=== PATIENT | female | born 1955 | race Caucasian/White ===

== ENCOUNTER 2018-05-12 00:55 | Emergency (ER) | payer MEDICARE ==
[~2018-05-12] VITALS: Ht 157.5 cm; Wt 39.5 kg
[2018-05-12 00:59] VITALS: Ht 157.5 cm; Wt 39.5 kg
[2018-05-12] MEDS ORDERED: PLAQUENIL 200200 MG PO (01:01)
[2018-05-12] MEDS ORDERED: COMBIVENT RESPIM4 GM INH (01:01)
[2018-05-12] MEDS ORDERED: CYMBALTA60 MG PO (01:02)
[2018-05-12] MEDS ORDERED: CALCIUM 600 +1 EAC3 PO (01:02)
[2018-05-12] MEDS ORDERED: HYDROCODON-ACE1 EAC7 PO (01:02)
[2018-05-12] MEDS ORDERED: PLAVIX75 MG (01:02)
[2018-05-12 02:10] LABS: HEMOGLOBIN 10.7 g/dL (12-16); MCH 26.1 pg (26.0-34.0); MCHC 31.5 g/dL (31.0-37.0); MCV 82.9 fL (80.0-100.0); PLATELET COUNT 551 10x3/uL (130-400); RDW 16.7 % (11.5-14.5); WBC 24.5 10x3/uL (4.8-10.8)
[2018-05-12 02:23] LABS: INR 1.07 (0.85-1.17); PROTIME 13.5 SECONDS (11.6-15.0)
[2018-05-12 02:31] LABS: ALBUMIN 2.7 g/dL (3.4-5.0); ALKALINE PHOSPHATASE 67 U/L (46-116); ALT (SGPT) 10 U/L (10-68); CALC OSMOLALITY 274 mosm/kg (275-300); CALCIUM 9.1 mg/dL (8.5-10.1); CARBON DIOXIDE 28.6 mmol/L (21.0-32.0); CHLORIDE - SERUM 100 mmol/L (98-107); CREATININE - SERUM 0.8 mg/dL (0.6-1.3); D-DIMER-QUANTITATIVE 4.58 ug/mLFEU (0.20-0.54); GLUCOSE 107 mg/dL (74-106); POTASSIUM - SERUM 3.8 mmol/L (3.5-5.1); PROTEIN - SERUM 8.5 g/dL (6.4-8.2); SODIUM 137 mmol/L (136-145); UREA NITROGEN 14 mg/dL (7-18); eGFR NON AFRICAN AMERICAN 77 mL/min (90-120)
[2018-05-12 02:34] LABS: CKMB 2.4 U/L (0.0-3.6); CREATINE KINASE 101 UL (21-215); MAGNESIUM - SERUM 1.7 mg/dL (1.8-2.4); PRO BNP 2091 pg/mL (0-125)
[2018-05-12 02:39] LABS: TROPONIN-I < 0.017 ng/mL (0.000-0.060)
[2018-05-12 03:05] LABS: LYMPHOCYTES 3 % (15-50); MONOCYTES 2 % (2-11); NEUTROPHILS 92 % (40-80); PLATELET ESTIMATE INCREASED; PLATELET MORPHOLOGY GIANT PLTS PRESENT
[2018-05-12] MEDS ORDERED: LEVAQUIN750 MG PO (04:30)
[2018-05-12 04:57] VITALS: BP 118/69
[2018-05-14 20:08] VITALS: Ht 157.5 cm; Wt 39.5 kg
== END 2018-05-12 04:57 | disposition home or self-care (01) ==
LOC: D.ER 00:55
PROVIDERS: Family Medicine
DX: J44.9 Chronic obstructive pulmonary disease, unspecified (principal); D72.829 Elevated white blood cell count, unspecified; R91.8 Other nonspecific abnormal finding of lung field; R06.02 Shortness of breath; Z89.512 Acquired absence of left leg below knee; F17.200 Nicotine dependence, unspecified, uncomplicated

== ENCOUNTER 2018-05-13 20:03 | Inpatient (IN) | payer MEDICARE, MEDICAID ==
[~2018-05-13] VITALS: Ht 157.5 cm; Wt 38.0 kg
--- NOTE | ~2018-05-13 | MORECARE ---
CASE MANAGEMENT DISCHARGE SUMMARY PATIENT: LA FRANKLIN UNIT: [id number] ADM DATE: 05/13/18 AGE: 63 : 59 SEX: F ROOM/BED: D.2105 AUTHOR: ALTON,DOC PHYSICIAN: REFERRING PHYSICIAN: NICK ADAM MD DATE OF SERVICE: 05/19/18 Discharge Plan Patient Name: LA FRANKLIN Facility: [facility]:[place] : 1955 Planned Disposition: Home with Home Health Anticipated Discharge Date: 05/18/18 Discharge Date: 05/18/2018 Expected LOS: 5 Initial Reviewer: [id number] Initial Review Date: 05/13/2018 Generated: 05/19/18 9:26 am Comments DCP- Discharge Planning Updated by [email or web address]: Florencia Miller on 05/18/18 6:[address] Patient Name: LA FRANKLIN Admission Status: ER Accout number: [id number] Admission Date: 05-13-2018 : 1955 Admission Diagnosis:SHORTNESS OF BREATH Attending: NICK ADAM Current LOS: 5 Anticipated DC Date: 05-18-2018 Planned Disposition: Home with Home Health Primary Insurance: [facility] MEDICARE SOLUTIONS Discharge Planning Comments: LATE ENTRY 1210 CM MET WITH THE PATIENT AND HER DAUGHTER, RADHA, AT THE BEDSIDE. PATIENT GAVE PERMISSION FOR CM TO DISCUSS DISCHARGE PLANS AND NEEDS WITH DAUGHTER BEING PRESENT IN THE ROOM. SHE WILL RETURN TO HOME WITH HER FAMILY. SHE HAS A RAMP TO ENTER HER HOME. PCP- DR FULLER IN [facility]. PHARMACY [address] PATIENT WAS WEARING NASAL OXYGEN AY 3/L MIN. CM REQUESTED O2 READINGS ON RM AIR AT REST AND WITH ACTIVITY. O2 SATS 95% AT REST 93% WITH MINIMAL ACTIVITY BY RESPIRATORY THERAPY.. PATIENT STATES SHE HAS HOME HEALTH W/ [facility]. HAS TRANSPORTATION TO HOME. DISCUSSED DISCHARGE IMM. NO QUESTIONS OR CONCERNS. SIGNATURE OBTAINED FROM PATIENT COPY TO THE PATIENT. COPY TO THE CHART. DENIES ANY ADDITIONAL NEEDS. CM NOTIFIED [facility] AND FAXED CLINUICAL AND DISCHARGE MED LIST . SPOKE WITH JETHRO. Slab Stripper: Florencia Miller DCPIA - Discharge Planning Initial Assessment Updated by [email or web address]: Florencia Miller on 05/18/18 6:49 pm * Is the patient Alert and Oriented? Yes * How many steps to enter\exit or inside your home? RAMP * PCP DR ALEN FULLER [facility] * Pharmacy [facility] [address] * Preadmission Environment Home with Family * ADLs Partial Dependent * Partial ADLs (Assistance needed) Bathing Dressing * Equipment Walker * Other Equipment DENIES ANY ADDITIONAL DME * List name and contact numbers for known caregivers / representatives who currently or will assist patient after discharge: GemaJulio FRANKLIN [phone] * Verbal permission to speak to the caregivers and representatives has been obtained from the patient. Yes * Community resources currently utilized Home Health * Please name any agencies selected above. [facility] * Additional services required to return to the preadmission environment? Yes * Can the patient safely return to the preadmission environment? Yes * Has this patient been hospitalized within the prior 30 days at any hospital? No Coverage Notice Reviewer: [email or web address] Marisela Miller Notice Issued Date-Time: 05/18/2018 12:38 Notice Type: IM Discharge Notice Notice Delivered To: Patient Relationship to Patient: Pressure Testing Technician Name: Delivery Method: HAND - Hand Delivered Anat Days: Prior Verbal Notification: Recipient Understood Notice: Yes Recipient Signature: Yes Med Rec Note Co-signed by Attending: Coverage Notice Comment: DISCUSSED WITH THE PATIENT IN PRESENCE OF RADHA MATTHEWS, WITH PATIENT'S PERMISSION. NO QUESTIONS OR CONCERNS. SIGNATURE OBTAINED. COPY TO THE CHART. COPY TO THE PATIENT. Last DP export: 05/18/18 6:02 Patient Name: LA FRANKLIN Page [id number] at 0826 All edits/amendments must be made on the electronic document DICTATION DATE: 05/19/18824 BEHAVIORAL HEALTH ASSISTANT: PIA 05/19/18824 RPT#: [id number] DC DATE:05/18/18 STATUS: DIS IN [facility] [address] [place] [address] END OF REPORT
--- NOTE | ~2018-05-13 | MORECARE ---
CASE MANAGEMENT DISCHARGE SUMMARY PATIENT: LA FRANKLIN UNIT: [id number] ADM DATE: 05/13/18 AGE: 63 : 59 SEX: F ROOM/BED: D.2103 AUTHOR: RICCI DANG PHYSICIAN: REFERRING PHYSICIAN: NICK ADAM MD DATE OF SERVICE: 05/18/18 Discharge Plan Patient Name: LA FRANKLIN Facility: [facility]:[place] : 1955 Planned Disposition: Home with Home Health Anticipated Discharge Date: 05/18/18 Discharge Date: 05/18/2018 Expected LOS: 5 Initial Reviewer: [email or web address] Initial Review Date: 05/13/2018 Generated: 05/18/18 7:42 pm Patient Name: LA FRANKLIN Page [id number] at 1842 All edits/amendments must be made on the electronic document DICTATION DATE: 05/18/181841 CATERING STAFF MEMBER: PIA 05/18/181841 RPT#: [id number] DC DATE:05/18/18 STATUS: DIS IN [facility] [address] [place] [address] END OF REPORT
--- NOTE | ~2018-05-13 | MORECARE ---
CASE MANAGEMENT DISCHARGE SUMMARY PATIENT: LA FRANKLIN UNIT: [id number] ADM DATE: 05/13/18 AGE: 63 : 59 SEX: F ROOM/BED: D.2107 AUTHOR: ALTON,DOC PHYSICIAN: REFERRING PHYSICIAN: NICK ADAM MD DATE OF SERVICE: 05/18/18 Discharge Plan Patient Name: LA FRANKLIN Facility: [facility]:[place] : 1955 Planned Disposition: Home with Home Health Anticipated Discharge Date: 05/18/18 Discharge Date: 05/18/2018 Expected LOS: 5 Initial Reviewer: [email or web address] Initial Review Date: 05/13/2018 Generated: 05/18/18 8:02 pm Comments DCP- Discharge Planning Updated by [email or web address]: Florencia Miller on 05/18/18 6:[address] Patient Name: LA FRANKLIN Admission Status: ER Accout number: [id number] Admission Date: 05-13-2018 : 1955 Admission Diagnosis:SHORTNESS OF BREATH Attending: NICK ADAM Current LOS: 5 Anticipated DC Date: 05-18-2018 Planned Disposition: Home with Home Health Primary Insurance: [facility] MEDICARE SOLUTIONS Discharge Planning Comments: LATE ENTRY 1210 CM MET WITH THE PATIENT AND HER DAUGHTER, RADHA, AT THE BEDSIDE. PATIENT GAVE PERMISSION FOR CM TO DISCUSS DISCHARGE PLANS AND NEEDS WITH DAUGHTER BEING PRESENT IN THE ROOM. SHE WILL RETURN TO HOME WITH HER FAMILY. SHE HAS A RAMP TO ENTER HER HOME. PCP- DR FULLER IN [facility]. PHARMACY [address] PATIENT WAS WEARING NASAL OXYGEN AY 3/L MIN. CM REQUESTED O2 READINGS ON RM AIR AT REST AND WITH ACTIVITY. O2 SATS 95% AT REST 93% WITH MINIMAL ACTIVITY BY RESPIRATORY THERAPY.. PATIENT STATES SHE HAS HOME HEALTH W/ [facility]. HAS TRANSPORTATION TO HOME. DISCUSSED DISCHARGE IMM. NO QUESTIONS OR CONCERNS. SIGNATURE OBTAINED FROM PATIENT COPY TO THE PATIENT. COPY TO THE CHART. DENIES ANY ADDITIONAL NEEDS. CM NOTIFIED [facility] AND FAXED CLINUICAL AND DISCHARGE MED LIST . SPOKE WITH JETHRO. Marine Erector: Florencia Miller DCPIA - Discharge Planning Initial Assessment Updated by [email or web address]: Florencia Miller on 05/18/18 6:49 pm * Is the patient Alert and Oriented? Yes * How many steps to enter\exit or inside your home? RAMP * PCP DR ALEN FULLER [facility] * Pharmacy [facility] [address] * Preadmission Environment Home with Family * ADLs Partial Dependent * Partial ADLs (Assistance needed) Bathing Dressing * Equipment Walker * Other Equipment DENIES ANY ADDITIONAL DME * List name and contact numbers for known caregivers / representatives who currently or will assist patient after discharge: Juan FRANKLIN [phone] * Verbal permission to speak to the caregivers and representatives has been obtained from the patient. Yes * Community resources currently utilized Home Health * Please name any agencies selected above. [facility] * Additional services required to return to the preadmission environment? Yes * Can the patient safely return to the preadmission environment? Yes * Has this patient been hospitalized within the prior 30 days at any hospital? No Coverage Notice Reviewer: [id number] Marisela Miller Notice Issued Date-Time: 05/18/2018 12:38 Notice Type: IM Discharge Notice Notice Delivered To: Patient Relationship to Patient: Train Starter Name: Delivery Method: - Anat Days: Prior Verbal Notification: Recipient Understood Notice: Recipient Signature: Med Rec Note Co-signed by Attending: Coverage Notice Comment: Last DP export: 05/18/18 5:49 Patient Name: LA FRANKLIN Page [id number] at 1902 All edits/amendments must be made on the electronic document DICTATION DATE: 05/18/181901 ORACLE DATABASE ARCHITECT: PIA 05/18/181901 RPT#: [id number] DC DATE:05/18/18 STATUS: DIS IN [facility] [address] [place] [address] END OF REPORT
--- NOTE | ~2018-05-13 | MORECARE ---
CASE MANAGEMENT DISCHARGE SUMMARY PATIENT: LA FRANKLIN UNIT: [id number] ADM DATE: 05/13/18 AGE: 63 : 59 SEX: F ROOM/BED: D.2100 AUTHOR: RICCI DANG PHYSICIAN: REFERRING PHYSICIAN: NICK ADAM MD DATE OF SERVICE: 05/18/18 Discharge Plan Patient Name: LA FRANKLIN Facility: [facility]:[place] : 1955 Planned Disposition: Home with Home Health Anticipated Discharge Date: 05/18/18 Discharge Date: 05/18/2018 Expected LOS: 5 Initial Reviewer: [email or web address] Initial Review Date: 05/13/2018 Generated: 05/18/18 7:49 pm DCPIA - Discharge Planning Initial Assessment Updated by [email or web address]: Florencia Miller on 05/18/18 6:49 pm * Is the patient Alert and Oriented? Yes * How many steps to enter\exit or inside your home? RAMP * PCP DR ALEN FULLER [facility] * Pharmacy [facility] [address] * Preadmission Environment Home with Family * ADLs Partial Dependent * Partial ADLs (Assistance needed) Bathing Dressing * Equipment Walker * Other Equipment DENIES ANY ADDITIONAL DME * List name and contact numbers for known caregivers / representatives who currently or will assist patient after discharge: Juan FRANKLIN [phone] * Verbal permission to speak to the caregivers and representatives has been obtained from the patient. Yes * Community resources currently utilized Home Health * Please name any agencies selected above. [facility] * Additional services required to return to the preadmission environment? Yes * Can the patient safely return to the preadmission environment? Yes * Has this patient been hospitalized within the prior 30 days at any hospital? No Last DP export: 05/18/18 5:42 Patient Name: LA FRANKLIN Page [id number] at 1849 All edits/amendments must be made on the electronic document DICTATION DATE: 05/18/181848 WASH MILL OPERATOR: PIA 05/18/181848 RPT#: [id number] DC DATE:05/18/18 STATUS: DIS IN [facility] [address] [place] [address] END OF REPORT
[~2018-05-13 20:03] MED LIST: CALCIUM 600 +1 EAC3 PO; COMBIVENT RESPIM4 GM INH; CYMBALTA60 MG PO; HYDROCODON-ACE1 EAC7 PO; LEVAQUIN750 MG PO; PLAQUENIL 200200 MG PO; PLAVIX75 MG
[2018-05-13 20:54] LABS: APTT 26.1 SECONDS (22.8-39.4); INR 1.03 (0.85-1.17); PROTIME 13.1 SECONDS (11.6-15.0)
[2018-05-13 21:02] LABS: ALBUMIN 2.8 g/dL (3.4-5.0); ALKALINE PHOSPHATASE 76 U/L (46-116); ALT (SGPT) 11 U/L (10-68); BILIRUBIN - TOTAL 0.14 mg/dL (0.2-1.3); CALC OSMOLALITY 272 mosm/kg (275-300); CALCIUM 9.4 mg/dL (8.5-10.1); CARBON DIOXIDE 24.8 mmol/L (21.0-32.0); CHLORIDE - SERUM 99 mmol/L (98-107); CREATININE - SERUM 0.8 mg/dL (0.6-1.3); GLUCOSE 87 mg/dL (74-106); PROTEIN - SERUM 9.1 g/dL (6.4-8.2); SODIUM 137 mmol/L (136-145); UREA NITROGEN 13 mg/dL (7-18); eGFR NON AFRICAN AMERICAN 77 mL/min (90-120)
[2018-05-13 21:03] LABS: POTASSIUM - SERUM 4.6 mmol/L (3.5-5.1)
[2018-05-13 21:12] LABS: BASOPHILS 0.1 % (0-2); EOSINOPHILS 0.8 % (0-7); HEMOGLOBIN 11.4 g/dL (12-16); IMMATURE GRANULOCYTES 0.5 % (0-5); MCH 26.8 pg (26.0-34.0); MCHC 31.7 g/dL (31.0-37.0); MCV 84.5 fL (80.0-100.0); MEAN PLATELET VOLUME 8.7 fL (7.4-10.4); MONOCYTES 2.7 % (2-11); NEUTROPHILS 87.9 % (40-80); PLATELET COUNT 558 10x3/uL (130-400); RBC 4.26 10x6/uL (4.00-5.40); WBC 32.2 10x3/uL (4.8-10.8)
[2018-05-13 21:14] LABS: CKMB 3.2 U/L (0.0-3.6); CREATINE KINASE 137 UL (21-215); PRO BNP 2875 pg/mL (0-125); TROPONIN-I < 0.017 ng/mL (0.000-0.060)
[2018-05-14 01:58] VITALS: BP 133/71
[2018-05-14 04:53] VITALS: BP 128/79
[2018-05-14 09:52] VITALS: BP 142/62
[2018-05-14 11:00] VITALS: BP 124/70
[2018-05-14 16:11] VITALS: BP 114/72; BMI 15.9
[2018-05-14 20:00] VITALS: BP 120/58
[2018-05-14 20:08] VITALS: Ht 157.5 cm; Wt 38.0 kg
[2018-05-15 00:53] VITALS: BP 118/56
[2018-05-15 04:00] VITALS: BP 120/60
[2018-05-15 05:51] LABS: BASOPHILS 0.1 % (0-2); EOSINOPHILS 0 % (0-7); HEMATOCRIT 32.7 % (36.0-48.0); HEMOGLOBIN 10.3 g/dL (12-16); IMMATURE GRANULOCYTES 0.6 % (0-5); LYMPHOCYTES 9.9 % (15-50); MCH 25.8 pg (26.0-34.0); MCHC 31.5 g/dL (31.0-37.0); MEAN PLATELET VOLUME 8.9 fL (7.4-10.4); MONOCYTES 2.5 % (2-11); NEUTROPHILS 86.9 % (40-80); PLATELET COUNT 633 10x3/uL (130-400); RDW 16.6 % (11.5-14.5)
[2018-05-15 06:11] LABS: ANION GAP 17.4 mmol/L (8-16); CALCIUM 8.7 mg/dL (8.5-10.1); CARBON DIOXIDE 27.5 mmol/L (21.0-32.0)
[2018-05-15 06:18] LABS: MCV 81.8 fL (80.0-100.0); WBC 13.1 10x3/uL (4.8-10.8)
[2018-05-15 06:25] LABS: CREATININE - SERUM 1.1 mg/dL (0.6-1.3); POTASSIUM - SERUM 3.9 mmol/L (3.5-5.1)
[2018-05-15 08:58] VITALS: BP 120/61
[2018-05-15 11:00] VITALS: BP 109/64
[2018-05-15 15:45] VITALS: BP 124/66
[2018-05-15 20:52] VITALS: BP 119/63
[2018-05-16] VITALS: BP 131/66
[2018-05-16 03:00] VITALS: BP 144/68
[2018-05-16 04:00] VITALS: BP 114/61
[2018-05-16 06:23] LABS: BASOPHILS 0.1 % (0-2); EOSINOPHILS 0.1 % (0-7); HEMATOCRIT 33.3 % (36.0-48.0); HEMOGLOBIN 10.6 g/dL (12-16); IMMATURE GRANULOCYTES 0.6 % (0-5); LYMPHOCYTES 7.3 % (15-50); MCHC 31.8 g/dL (31.0-37.0); MCV 81.8 fL (80.0-100.0); MEAN PLATELET VOLUME 8.9 fL (7.4-10.4); MONOCYTES 5.1 % (2-11); NEUTROPHILS 86.8 % (40-80); PLATELET COUNT 628 10x3/uL (130-400); RBC 4.07 10x6/uL (4.00-5.40); RDW 16.6 % (11.5-14.5)
[2018-05-16 06:35] LABS: ANION GAP 14.3 mmol/L (8-16); CALCIUM 8.7 mg/dL (8.5-10.1); CARBON DIOXIDE 27.7 mmol/L (21.0-32.0); CREATININE - SERUM 1.1 mg/dL (0.6-1.3)
[2018-05-16 08:56] VITALS: BP 111/55
[2018-05-16 09:41] LABS: APTT 26.3 SECONDS (22.8-39.4); INR 1.08 (0.85-1.17); PROTIME 13.6 SECONDS (11.6-15.0)
[2018-05-16 11:00] VITALS: BP 114/68; BP 128/71
[2018-05-16 21:22] VITALS: BP 123/54
[2018-05-17 02:11] VITALS: BP 110/56
[2018-05-17 05:24] LABS: BASOPHILS 0 % (0-2); EOSINOPHILS 0.1 % (0-7); HEMATOCRIT 33.9 % (36.0-48.0); HEMOGLOBIN 10.8 g/dL (12-16); IMMATURE GRANULOCYTES 0.8 % (0-5); LYMPHOCYTES 11.2 % (15-50); MCHC 31.9 g/dL (31.0-37.0); MCV 81.5 fL (80.0-100.0); MEAN PLATELET VOLUME 8.8 fL (7.4-10.4); NEUTROPHILS 79.9 % (40-80); PLATELET COUNT 611 10x3/uL (130-400); RBC 4.16 10x6/uL (4.00-5.40); RDW 16.2 % (11.5-14.5); WBC 10.2 10x3/uL (4.8-10.8)
[2018-05-17 05:30] LABS: ANION GAP 14.4 mmol/L (8-16); CALCIUM 8.4 mg/dL (8.5-10.1); CARBON DIOXIDE 28.3 mmol/L (21.0-32.0); POTASSIUM - SERUM 3.7 mmol/L (3.5-5.1)
[2018-05-17 06:40] VITALS: BP 94/42
[2018-05-17 08:42] VITALS: BP 125/64
[2018-05-17 11:30] VITALS: BP 125/64
[2018-05-17 20:30] VITALS: BP 120/67
[2018-05-18 00:30] VITALS: BP 115/66
[2018-05-18 04:30] VITALS: BP 106/59
[2018-05-18 05:56] LABS: BASOPHILS 0 % (0-2); EOSINOPHILS 0 % (0-7); HEMATOCRIT 34.6 % (36.0-48.0); LYMPHOCYTES 13.5 % (15-50); MCH 25.8 pg (26.0-34.0); MCHC 31.8 g/dL (31.0-37.0); MCV 81.2 fL (80.0-100.0); MEAN PLATELET VOLUME 9.1 fL (7.4-10.4); NEUTROPHILS 79.5 % (40-80); PLATELET COUNT 653 10x3/uL (130-400); RBC 4.26 10x6/uL (4.00-5.40); RDW 16.5 % (11.5-14.5); WBC 8.4 10x3/uL (4.8-10.8)
[2018-05-18 05:57] LABS: CALC OSMOLALITY 284 mosm/kg (275-300); CALCIUM 8.8 mg/dL (8.5-10.1); CARBON DIOXIDE 29.8 mmol/L (21.0-32.0); CHLORIDE - SERUM 99 mmol/L (98-107); CREATININE - SERUM 0.8 mg/dL (0.6-1.3); GLUCOSE 115 mg/dL (74-106); POTASSIUM - SERUM 3.3 mmol/L (3.5-5.1); SODIUM 138 mmol/L (136-145); UREA NITROGEN 36 mg/dL (7-18); eGFR NON AFRICAN AMERICAN 77 mL/min (90-120)
[2018-05-18 07:56] VITALS: BP 121/79
[2018-05-18] MEDS ORDERED: VIBRAMYCIN 100100 MG PO (09:52)
[2018-05-18] MEDS ORDERED: SINGULAIR10 MG PO (09:54)
[2018-05-18] MEDS ORDERED: PROTONIX40 MG PO (09:54)
[2018-05-18] MEDS ORDERED: PREDNISONE10 MG PO (09:55)
[2018-05-18 11:53] VITALS: BP 114/71
[2018-05-18 16:14] VITALS: BP 108/72
== END 2018-05-18 17:59 | disposition home health service (06) | DRG 177 ==
LOC: D.ER 20:03 → D.EDHOLD 21:25 → D.M2 21:25
PROVIDERS: Family Medicine; Internal Medicine Nephrology; Internal Medicine Pulmonary Disease
DX: J15.6 Pneumonia due to other Gram-negative bacteria (principal); J96.21 Acute and chronic respiratory failure with hypoxia; I50.21 Acute systolic (congestive) heart failure; J44.0 Chronic obstructive pulmonary disease with (acute) lower respiratory infection; J44.1 Chronic obstructive pulmonary disease with (acute) exacerbation; J98.11 Atelectasis; F17.213 Nicotine dependence, cigarettes, with withdrawal; J90 Pleural effusion, not elsewhere classified; M48.54XA Collapsed vertebra, not elsewhere classified, thoracic region, initial encounter for fracture; J69.0 Pneumonitis due to inhalation of food and vomit; J15.212 Pneumonia due to Methicillin resistant Staphylococcus aureus; I11.0 Hypertensive heart disease with heart failure; E78.5 Hyperlipidemia, unspecified; G47.33 Obstructive sleep apnea (adult) (pediatric); I25.10 Atherosclerotic heart disease of native coronary artery without angina pectoris; I73.9 Peripheral vascular disease, unspecified; K21.9 Gastro-esophageal reflux disease without esophagitis; D47.3 Essential (hemorrhagic) thrombocythemia; R91.8 Other nonspecific abnormal finding of lung field; Z95.5 Presence of coronary angioplasty implant and graft

== ENCOUNTER → 2018-10-31 07:52 | Outpatient (CLI) | payer MEDICARE, MEDICAID ==
[~2018-10-31 07:52] MED LIST changes: +PREDNISONE10 MG PO; +PROTONIX40 MG PO; +SINGULAIR10 MG PO; +VIBRAMYCIN 100100 MG PO
[2018-10-31 08:54] LABS: CREATININE - SERUM 0.7 mg/dL (0.6-1.3); VANCOMYCIN - TROUGH 17.2 ug/mL (10.0-20.0)
== END | disposition home or self-care (01) ==
LOC: D.LABREF 07:52
PROVIDERS: Internal Medicine
DX: L03.90 Cellulitis, unspecified (principal); I87.2 Venous insufficiency (chronic) (peripheral); J44.9 Chronic obstructive pulmonary disease, unspecified; I25.10 Atherosclerotic heart disease of native coronary artery without angina pectoris

== ENCOUNTER → 2018-11-04 16:34 | Outpatient (CLI) | payer MEDICARE, MEDICAID ==
[2018-11-04 20:21] LABS: CREATININE - SERUM 0.6 mg/dL (0.6-1.3); VANCOMYCIN - TROUGH 21.3 ug/mL (10.0-20.0)
== END | disposition home or self-care (01) ==
LOC: D.LABREF 16:34
PROVIDERS: Internal Medicine
DX: L03.90 Cellulitis, unspecified (principal); I73.9 Peripheral vascular disease, unspecified; I10 Essential (primary) hypertension; Z51.81 Encounter for therapeutic drug level monitoring; Z79.899 Other long term (current) drug therapy

== ENCOUNTER → 2018-11-10 09:43 | Outpatient (CLI) | payer MEDICARE, MEDICAID ==
[2018-05-14 20:08] VITALS: BMI 15.9
[2018-11-10 13:49] LABS: CREATININE - SERUM 0.8 mg/dL (0.6-1.3); VANCOMYCIN - TROUGH 14.1 ug/mL (10.0-20.0)
== END | disposition home or self-care (01) ==
LOC: D.LABREF 09:43
PROVIDERS: ATTEND Internal Medicine
DX: Z51.81 Encounter for therapeutic drug level monitoring (principal); Z79.2 Long term (current) use of antibiotics; L03.90 Cellulitis, unspecified